=== PATIENT | male | born 2000 | race Two or more races ===

== ENCOUNTER 2020-11-13 12:34 | Outpatient (CLI) | payer OTHER | END 2020-11-13 12:40 | disposition home or self-care (01) | LOC: RAD 12:34 | DX: S72.302D Unspecified fracture of shaft of left femur, subsequent encounter for closed fracture with routine healing (principal); S32.402D Unspecified fracture of left acetabulum, subsequent encounter for fracture with routine healing ==

== ENCOUNTER 2021-03-08 08:54 | Outpatient (CLI) | payer OTHER | END 2021-03-08 08:59 | disposition home or self-care (01) | LOC: RAD 08:54 | PROVIDERS: ATTEND Family Medicine | DX: S72.325A Nondisplaced transverse fracture of shaft of left femur, initial encounter for closed fracture (principal) ==